=== PATIENT | male | born 1945 | race Caucasian/White ===

== ENCOUNTER → 2016-10-03 | Outpatient (CLI) | payer MEDICARE ==
[~2016-10-03] MED LIST: ATOR40TA PO; LEVA500T PO; PAXI30TA11 PO; PERC5TAB6 PO
== END ==
LOC: M SMT 13:35
PROVIDERS: ATTEND Urology
DX: Z90.79 Acquired absence of other genital organ(s) (principal); Z85.46 Personal history of malignant neoplasm of prostate

== ENCOUNTER → 2017-07-23 | Outpatient (REF) | payer MEDICARE ==
[2017-07-23 19:25] LABS: FOLATE 14.3 NG/ML; VITAMIN B12 LEVEL 368 PG/ML
== END ==
LOC: M LAB REF 16:24
DX: R25.1 Tremor, unspecified (principal)
CPT/HCPCS: 82525

== ENCOUNTER → 2017-10-01 | Outpatient (REF) | payer MEDICARE ==
[2017-10-02 18:07] LABS: FERRITIN 364 NG/ML (26-388); IRON (FE) 173 UG/DL (65-175); PERCENT SATURATION 56.9 % (19.7-50.0); TOTAL IRON BINDING CAPACITY 304 UG/DL (250-450)
== END ==
LOC: M LAB REF 16:41
DX: Z84.89 Family history of other specified conditions (principal)
CPT/HCPCS: 83550

== ENCOUNTER → 2017-10-01 | Outpatient (REF) | payer MEDICARE | LOC: M LAB REF 11:40 | DX: R74.0 Nonspecific elevation of levels of transaminase and lactic acid dehydrogenase [LDH] (principal); E83.110 Hereditary hemochromatosis | CPT/HCPCS: 81256 ==

== ENCOUNTER → 2017-10-08 | Outpatient (CLI) | payer MEDICARE | LOC: M RAD 09:01 | DX: R94.5 Abnormal results of liver function studies (principal) | CPT/HCPCS: 76705 ==

== ENCOUNTER 2018-02-19 13:39 | Inpatient (IN) | payer MEDICARE ==
[~2018-02-19 13:39] MED LIST changes: -ATOR40TA PO; -LEVA500T PO; +ONDANSETRON 4MG/2ML VIAL (J2405) IV; -PAXI30TA11 PO; -PERC5TAB6 PO
[2018-02-19 14:25] LABS: BASO # 0.1 10^3/uL (0.0-0.2); BASO % 0.4 % (0.0-1.0); HEMATOCRIT 44.8 % (42.0-52.0); HEMOGLOBIN 15.5 g/dl (13.5-17.5); IMMATURE GRANULOCYTE % 0.8 % (0-3.0); LYMPH % 7.6 % (24.0-44.0); MEAN CORPUSCULAR HEMOGLOBIN 32.8 pg (27.0-33.0); MEAN CORPUSCULAR HGB CONC 34.6 g/dl (32.0-36.5); MEAN CORPUSCULAR VOLUME 94.7 fl (80.0-96.0); MONO # 0.4 10^3/uL (0.0-0.8); MONO % 2.9 % (0.0-5.0); NEUTROPHILS # 11.8 10^3/uL (1.8-7.7); NEUTROPHILS % 88.3 % (36.0-66.0); PLATELET COUNT, AUTOMATED 226 10^3/uL (150-450); RED BLOOD COUNT 4.73 10^6/uL (4.30-6.10); RED CELL DISTRIBUTION WIDTH 12.6 % (11.5-14.5); WHITE BLOOD COUNT 13.3 10^3/uL (4.0-10.0)
[2018-02-19 14:31] LABS: AMMONIA 20 uMOL/L (<32)
[2018-02-19 14:38] LABS: LACTIC ACID SEPSIS PROTOCOL 2.3 MMOL/L (0.4-2.0)
[2018-02-19 14:41] LABS: ALBUMIN 3.9 GM/DL (3.2-5.2); ALBUMIN/GLOBULIN RATIO 1.26 (1.00-1.93); ALKALINE PHOSPHATASE 38 U/L (45-117); ALT/SGPT 64 U/L (12-78); ANION GAP 8 MEQ/L (8-16); AST/SGOT 40 U/L (7-37); BILIRUBIN,TOTAL 0.9 MG/DL (0.2-1.0); BLOOD UREA NITROGEN 6 MG/DL (7-18); C REACTIVE PROTEIN QUANTITATIV < 0.30 MG/DL (0.00-0.30); CALCIUM LEVEL 9.1 MG/DL (8.8-10.2); CARBON DIOXIDE LEVEL 28 MEQ/L (21-32); CHLORIDE LEVEL 101 MEQ/L (98-107); CREATININE FOR GFR 0.84 MG/DL (0.70-1.30); ETHYL ALCOHOL (ETHANOL) < 0.003 % (0.000-0.010); GLOMERULAR FILTRATION RATE > 60.0 (>42); GLUCOSE, FASTING 142 MG/DL (70-100); MAGNESIUM LEVEL 2.1 MG/DL (1.8-2.4); POTASSIUM SERUM 3.7 MEQ/L (3.5-5.1); SODIUM LEVEL 137 MEQ/L (136-145)
[2018-02-19 14:43] LABS: PROLACTIN 4.4 NG/ML (2.1-17.7)
[2018-02-19] MEDS ORDERED: LORazepam 2 MG/ML VIAL (J2060) IV (14:45)
[2018-02-19] MEDS ORDERED: OXAZEPAM 10 MG CAP PO (14:45)
[2018-02-19 14:52] LABS: ERYTHROCYTE SEDIMENTATION RATE 2 mm/hr (0-20)
[2018-02-19] MEDS: NS 1,000 ML IV (15:20)
[2018-02-19] MEDS: PANTOPRAZOLE 40MG TAB (PROTONIX) PO (15:20)
[2018-02-19] MEDS: ENOXAPARIN 30 MG/0.3 ML SYR (J1650) SC (15:21)
[2018-02-19] MEDS: PARoxetine 20 MG TAB PO (17:19)
[2018-02-19] MEDS ORDERED: PROHANCE 279.3MG/ML 15ML VIAL (A9576) As Ordered (18:33)
[2018-02-19] MEDS: ATORVASTATIN 20 MG TAB PO (21:20)
[2018-02-19] MEDS: TRIHEXYPHENIDYL 2 MG TAB PO (21:20)
[2018-02-19] MEDS ORDERED: SLF 3 ML SYR IV (21:30)
[2018-02-19] MEDS: SLF 3 ML SYR IV (21:31)
[2018-02-20 06:00] LABS: BASO # 0.1 10^3/uL (0.0-0.2); EOS # 0.1 10^3/uL (0.0-0.50); EOS % 1.1 % (0.0-3.0); HEMATOCRIT 40.3 % (42.0-52.0); HEMOGLOBIN 13.8 g/dl (13.5-17.5); IMMATURE GRANULOCYTE % 0.3 % (0-3.0); LYMPH % 27.8 % (24.0-44.0); MEAN CORPUSCULAR HEMOGLOBIN 32.3 pg (27.0-33.0); MEAN CORPUSCULAR HGB CONC 34.2 g/dl (32.0-36.5); MEAN CORPUSCULAR VOLUME 94.4 fl (80.0-96.0); MONO # 0.7 10^3/uL (0.0-0.8); MONO % 10.2 % (0.0-5.0); NEUTROPHILS # 4.3 10^3/uL (1.8-7.7); NEUTROPHILS % 59.6 % (36.0-66.0); PLATELET COUNT, AUTOMATED 189 10^3/uL (150-450); RED BLOOD COUNT 4.27 10^6/uL (4.30-6.10); RED CELL DISTRIBUTION WIDTH 12.7 % (11.5-14.5); WHITE BLOOD COUNT 7.3 10^3/uL (4.0-10.0)
[2018-02-20] MEDS: SLF 3 ML SYR IV ×3 (06:00→22:00)
[2018-02-20 06:22] LABS: ANION GAP 4 MEQ/L (8-16); BLOOD UREA NITROGEN 5 MG/DL (7-18); CALCIUM LEVEL 8.3 MG/DL (8.8-10.2); CARBON DIOXIDE LEVEL 28 MEQ/L (21-32); CHLORIDE LEVEL 107 MEQ/L (98-107); CHOLESTEROL LEVEL 149 MG/DL (<200); CHOLESTEROL RISK RATIO 2.365 (<5); GLOMERULAR FILTRATION RATE > 60.0 (>42); GLUCOSE, FASTING 111 MG/DL (70-100); HDL CHOLESTEROL 63 MG/DL (>40); LDL CHOLESTEROL 67 MG/DL (<100); NON-HDL-C 86 MG/DL; POTASSIUM SERUM 3.9 MEQ/L (3.5-5.1); SODIUM LEVEL 139 MEQ/L (136-145); TRIGLYCERIDES LEVEL 95 MG/DL (<150)
[2018-02-20] MEDS: TRIHEXYPHENIDYL 2 MG TAB PO ×2 (08:28→20:37)
[2018-02-20] MEDS: ENOXAPARIN 30 MG/0.3 ML SYR (J1650) SC (08:29)
[2018-02-20] MEDS: PANTOPRAZOLE 40MG TAB (PROTONIX) PO (08:29)
[2018-02-20] MEDS: PARoxetine 20 MG TAB PO (08:29)
[2018-02-20] MEDS: ATORVASTATIN 20 MG TAB PO (20:37)
[2018-02-21] MEDS: SLF 3 ML SYR IV ×2 (05:10→13:57)
[2018-02-21 05:29] LABS: BASO # 0.1 10^3/uL (0.0-0.2); BASO % 0.8 % (0.0-1.0); EOS # 0.1 10^3/uL (0.0-0.50); EOS % 1.9 % (0.0-3.0); HEMATOCRIT 42.3 % (42.0-52.0); HEMOGLOBIN 14.1 g/dl (13.5-17.5); IMMATURE GRANULOCYTE % 0.3 % (0-3.0); LYMPH % 31.3 % (24.0-44.0); MEAN CORPUSCULAR HEMOGLOBIN 32.2 pg (27.0-33.0); MEAN CORPUSCULAR HGB CONC 33.3 g/dl (32.0-36.5); MEAN CORPUSCULAR VOLUME 96.6 fl (80.0-96.0); MONO # 0.6 10^3/uL (0.0-0.8); MONO % 9.7 % (0.0-5.0); NEUTROPHILS # 3.6 10^3/uL (1.8-7.7); PLATELET COUNT, AUTOMATED 191 10^3/uL (150-450); RED BLOOD COUNT 4.38 10^6/uL (4.30-6.10); RED CELL DISTRIBUTION WIDTH 12.7 % (11.5-14.5); WHITE BLOOD COUNT 6.4 10^3/uL (4.0-10.0)
[2018-02-21 05:53] LABS: ANION GAP 6 MEQ/L (8-16); BLOOD UREA NITROGEN 6 MG/DL (7-18); CALCIUM LEVEL 8.7 MG/DL (8.8-10.2); CARBON DIOXIDE LEVEL 30 MEQ/L (21-32); CHLORIDE LEVEL 105 MEQ/L (98-107); CREATININE FOR GFR 0.78 MG/DL (0.70-1.30); GLOMERULAR FILTRATION RATE > 60.0 (>42); GLUCOSE, FASTING 94 MG/DL (70-100); POTASSIUM SERUM 4.1 MEQ/L (3.5-5.1); SODIUM LEVEL 141 MEQ/L (136-145)
[2018-02-21] MEDS: PARoxetine 20 MG TAB PO (08:36)
[2018-02-21] MEDS: ENOXAPARIN 30 MG/0.3 ML SYR (J1650) SC (08:37)
[2018-02-21] MEDS: PANTOPRAZOLE 40MG TAB (PROTONIX) PO (08:37)
[2018-02-21] MEDS: TRIHEXYPHENIDYL 2 MG TAB PO (08:37)
== END 2018-02-21 18:40 | disposition home or self-care (01) | DRG 149 ==
LOC: M PCU 13:39
DX: H81.10 Benign paroxysmal vertigo, unspecified ear (principal); I50.32 Chronic diastolic (congestive) heart failure; G24.9 Dystonia, unspecified; I10 Essential (primary) hypertension; R55 Syncope and collapse; F32.9 Major depressive disorder, single episode, unspecified; F10.20 Alcohol dependence, uncomplicated; F41.9 Anxiety disorder, unspecified; Z85.46 Personal history of malignant neoplasm of prostate; Z79.899 Other long term (current) drug therapy

== ENCOUNTER → 2018-03-03 | Outpatient (CLI) | payer MEDICARE ==
[~2018-03-03] MED LIST changes: +E-Z-GAS II EFFERVESCENT PACKET (SODIUM BICARB./CITRIC ACID/SIMETHICONE) As Ordered; +E-Z-HD 98% w/w 340GM SUSP BTL As Ordered; +E-Z-PAQUE 96% w/w SUSP 176GM BTL As Ordered; -ONDANSETRON 4MG/2ML VIAL (J2405) IV
== END ==
LOC: M RAD 08:15
DX: R68.81 Early satiety (principal)
CPT/HCPCS: 74245

== ENCOUNTER → 2018-09-29 | Outpatient (REF) | payer MEDICARE ==
[~2018-09-29] MED LIST changes: +ATOR40TA75 PO; -E-Z-GAS II EFFERVESCENT PACKET (SODIUM BICARB./CITRIC ACID/SIMETHICONE) As Ordered; -E-Z-HD 98% w/w 340GM SUSP BTL As Ordered; -E-Z-PAQUE 96% w/w SUSP 176GM BTL As Ordered; +LEVA1TAB2 PO; +MECL-86 PO; +PAXI30TA11 PO; +PAXI40TA10 PO; +PERC5TAB12 PO; +TRIH0.4E PO; +TRIH2TAB3 PO
== END ==
LOC: M LAB REF 12:40
PROVIDERS: ATTEND Nurse Practitioner Adult Health
DX: E83.110 Hereditary hemochromatosis (principal)

== ENCOUNTER → 2019-09-30 | Outpatient (REF) | payer MEDICARE ==
[2019-09-30 12:53] LABS: PERCENT SATURATION 54.5 % (19.7-50.0)
== END ==
LOC: M LAB REF 12:19
PROVIDERS: ATTEND Nurse Practitioner Adult Health
DX: E83.110 Hereditary hemochromatosis (principal); C61 Malignant neoplasm of prostate

== ENCOUNTER → 2019-10-07 | Outpatient (REF) | payer MEDICARE, OTHER | LOC: M LAB REF 12:37 | PROVIDERS: ATTEND Nurse Practitioner Adult Health | DX: R31.0 Gross hematuria (principal) ==

== ENCOUNTER → 2019-10-14 | Outpatient (REF) | payer MEDICARE, OTHER | LOC: M LAB REF 12:08 | PROVIDERS: ATTEND Nurse Practitioner Adult Health | DX: R31.0 Gross hematuria (principal) ==

== ENCOUNTER 2020-01-05 06:53 | Day surgery (SDC) | payer MEDICARE, OTHER ==
[2020-01-05] MEDS ORDERED: ELEVIEW SUBMUCOSAL INJ 10ML AMP As Ordered ONE (07:49)
[2020-01-05] MEDS ORDERED: propofoL 200 MG/20 ML VIAL As Ordered ONE (07:50)
[2020-01-05] MEDS ORDERED: LIDOCAINE 2% 100MG/5ML SDV (FOR ANES.) As Ordered ONE (07:50)
--- NOTE | 2020-01-27 11:35 | ROOR ---
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 Procedure: Pre-Anesthesia Assessment: - Prior to the procedure, a History and Physical was performed, and patient medications and allergies were reviewed. The patient is competent. The risks and benefits of the procedure and the sedation options and risks were discussed with the patient. All questions were answered and informed consent was obtained. Patient identification and proposed procedure were verified by the physician, the nurse and the anesthesiologist in the procedure room. Mental Status Examination: alert and oriented. Airway Examination: normal oropharyngeal airway and neck mobility. Respiratory Examination: clear to auscultation. CV Examination: normal. Prophylactic Antibiotics: The patient does not require prophylactic antibiotics. Prior Anticoagulants: The patient has taken no previous anticoagulant or antiplatelet agents. ASA Grade Assessment: II - A patient with mild systemic disease. After reviewing the risks and benefits, the patient was deemed in satisfactory condition to undergo the procedure. The anesthesia plan was to use monitored anesthesia care (MAC). Immediately prior to administration of medications, the patient was re-assessed for adequacy to receive sedatives. The heart rate, respiratory rate, oxygen saturations, blood pressure, adequacy of pulmonary ventilation, and response to care were monitored throughout the procedure. The physical status of the patient was re-assessed after the procedure. The Colonoscope was introduced through the anus and advanced to the terminal ileum, with identification of the appendiceal orifice and IC valve. The colonoscopy was performed without difficulty. The patient tolerated the procedure well. The quality of the bowel preparation was good. The terminal ileum, ileocecal valve, appendiceal orifice, and rectum were photographed. Scope insertion time was 3 minutes. Scope withdrawal time was 9 minutes. The total duration of the procedure was 12 minutes. Findings: The perianal and digital rectal examinations were normal. The terminal ileum appeared normal. A 25 mm polyp was found in the recto-sigmoid colon. The polyp was sessile. Biopsies were taken with a cold forceps for histology. Verification of patient identification for the specimen was done by the physician and nurse using the patient's name, date and medical record number. Estimated blood loss was minimal. Three sessile polyps were found in the transverse colon and ascending colon. The polyps were 4 to 5 mm in size. These polyps were removed with a cold biopsy forceps. Resection and retrieval were complete. Non-bleeding external and internal hemorrhoids were found during retroflexion. The hemorrhoids were medium-sized. Impression: - The examined portion of the ileum was normal. - One 25 mm polyp at the recto-sigmoid colon. Biopsied. - Three 4 to 5 mm polyps in the transverse colon and in the ascending colon, removed with a cold biopsy forceps. Resected and retrieved. - Non-bleeding external and internal hemorrhoids. Recommendation: - Patient has a contact number available for emergencies. The signs and symptoms of potential delayed complications were discussed with the patient. Return to normal activities tomorrow. Written discharge instructions were provided to the patient. - High fiber diet. - Continue present medications. - Await pathology results. - Repeat colonoscopy in 2 months for retreatment with Endoscopic mucosa resection,. - Return to GI clinic in 2 weeks. - Return to primary care physician. Armani Page MD Armani Page MD 01/05/2020 8:30:27 AM Electronically signed by Armani Page MD Number of Addenda: 0 Note Initiated On: 01/05/2020 8:13 AM Estimated Blood Loss: Estimated blood loss was minimal.
[2020-02-08] MEDS ORDERED: LOPR1TAB6 PO (13:37)
[2020-03-03] MEDS ORDERED: METR375C3 PO (11:19)
[2020-03-03] MEDS ORDERED: NEOM500T PO (11:19)
== END 2020-01-05 09:25 | disposition home or self-care (01) ==
LOC: M SDC 06:53
PROVIDERS: ATTEND Internal Medicine Gastroenterology
DX: K63.5 Polyp of colon (principal); K64.8 Other hemorrhoids; R19.5 Other fecal abnormalities; Z79.899 Other long term (current) drug therapy; Z85.46 Personal history of malignant neoplasm of prostate

== ENCOUNTER → 2020-02-05 | Outpatient (CLI) | payer MEDICARE ==
[~2020-02-05] MED LIST changes: +GASTROGRAFIN SOLUTION 30ML (Q9963) As Ordered ONE; +ISOVUE-370 76% 100ML VIAL As Ordered ONE; +LOPR1TAB6 PO; +METO1TAB7 PO; +METR375C3 PO; +NEOM500T PO
--- NOTE | 2020-02-19 09:20 | REP ---
CT STUDY OF THE ABDOMEN AND PELVIS WITH INTRAVENOUS (IV) AND ORAL CONTRAST HISTORY: Neoplasm of unspecified behavior of the digestive system. Large rectosigmoid polypoid mass, biopsy showing high-grade dysplasia, but no malignancy. Evaluate for invasive cancer. Lymphadenopathy, versus liver metastasis. CT CONTRAST DOSE: 100 mL of intravenous Isovue-370. COMPARISON: No comparison CT study. CT FINDINGS: Digital preliminary feed mixer radiograph shows an unremarkable bowel gas pattern. There are inguinal herniorrhaphy sutures visible on the right. The lung bases are clear on axial CT images. The liver shows mild diffuse fatty infiltration. No liver mass lesion is observed. The spleen is normal in size and homogeneous in texture. No adrenal lesion is seen on either side. No abnormality is noted in the pancreas. There is a Phrygian cap in the gallbladder. No other gallbladder abnormality is seen. No retroperitoneal mass or adenopathy is seen. The kidneys enhance symmetrically and are morphologically intact. Pelvic CT images demonstrate an eccentric nodular area of mural thickening in the rectum measuring 2.2 cm in greatest diameter. No other colonic mass lesion is seen. No perirectal or pericolonic adenopathy is observed. No pelvic adenopathy is seen. No abdominal wall defect or bony destructive lesion is appreciated. IMPRESSION: There is a 2.2 cm polypoid lesion along the left lateral wall of the upper rectum. No evidence of mass or adenopathy elsewhere. Fatty infiltration of the liver. No other acute abdominal abnormality. MTDD
== END ==
LOC: M RAD 07:26
PROVIDERS: ATTEND Internal Medicine Gastroenterology
DX: K62.89 Other specified diseases of anus and rectum (principal)
CPT/HCPCS: 74177; Q9963; Q9967

== ENCOUNTER → 2020-02-10 | Outpatient (CLI) | payer MEDICARE ==
[~2020-02-10] MED LIST changes: -GASTROGRAFIN SOLUTION 30ML (Q9963) As Ordered ONE; -ISOVUE-370 76% 100ML VIAL As Ordered ONE
== END ==
LOC: M LABSMTC 13:02
PROVIDERS: ATTEND Anesthesiology
DX: Z01.812 Encounter for preprocedural laboratory examination (principal); Z20.828 Contact with and (suspected) exposure to other viral communicable diseases
CPT/HCPCS: C9803; U0003

== ENCOUNTER 2020-02-15 11:43 | Day surgery (SDC) | payer MEDICARE ==
[~2020-02-15] VITALS: Ht 175.3 cm; Wt 71.7 kg
[~2020-02-15 11:43] MED LIST changes: +LIDOCAINE 2% 100MG/5ML SDV (FOR ANES.) As Ordered ONE; -METO1TAB7 PO; -METR375C3 PO; -NEOM500T PO; +NS 1,000 ML IV ONE; +propofoL 200 MG/20 ML VIAL As Ordered ONE
[2020-02-15] MEDS ORDERED: propofoL 200 MG/20 ML VIAL As Ordered ONE ×3 (13:48→14:34)
[2020-02-15] MEDS ORDERED: ePHEDrine SULFATE 25 MG/5 ML(5MG/ML) SYRINGE As Ordered ONE (13:59)
--- NOTE | 2020-02-15 15:17 | ROOR ---
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 Procedure: Pre-Anesthesia Assessment: - Prior to the procedure, a History and Physical was performed, and patient medications and allergies were reviewed. The patient is competent. The risks and benefits of the procedure and the sedation options and risks were discussed with the patient. All questions were answered and informed consent was obtained. Patient identification and proposed procedure were verified by the physician, the nurse and the anesthesiologist in the procedure room. Mental Status Examination: alert and oriented. Airway Examination: normal oropharyngeal airway and neck mobility. Respiratory Examination: clear to auscultation. CV Examination: normal. Prophylactic Antibiotics: The patient does not require prophylactic antibiotics. Prior Anticoagulants: The patient has taken no previous anticoagulant or antiplatelet agents. ASA Grade Assessment: II - A patient with mild systemic disease. After reviewing the risks and benefits, the patient was deemed in satisfactory condition to undergo the procedure. The anesthesia plan was to use monitored anesthesia care (MAC). Immediately prior to administration of medications, the patient was re-assessed for adequacy to receive sedatives. The heart rate, respiratory rate, oxygen saturations, blood pressure, adequacy of pulmonary ventilation, and response to care were monitored throughout the procedure. The physical status of the patient was re-assessed after the procedure. The Colonoscope was introduced through the anus and advanced to the terminal ileum, with identification of the appendiceal orifice and IC valve. The colonoscopy was performed without difficulty. The patient tolerated the procedure well. The quality of the bowel preparation was good. The ileocecal valve, appendiceal orifice, and rectum were photographed. Scope insertion time was 3 minutes. Scope withdrawal time was 9 minutes. The total duration of the procedure was 35 minutes. Findings: The perianal and digital rectal examinations were normal. The terminal ileum appeared normal. A 25 mm polyp was found in the recto-sigmoid colon. The polyp was sessile. Preparations were made for mucosal resection. Chromoscopy with methylene blue was done to rory the borders of the lesion. 6 mL of Orise gel was injected with adequate lift of the lesion from the muscularis propria. Forceps and snare mucosal resection with suction (via the working channel) retrieval was performed. A 25 mm area was resected. Resection and retrieval were complete. There was no bleeding at the end of the procedure. To close a defect after mucosal resection, five hemostatic clips were successfully placed. There was no bleeding at the end of the procedure. Verification of patient identification for the specimen was done by the physician and nurse using the patient's name, date and medical record number. Estimated blood loss was minimal. Non-bleeding external and internal hemorrhoids were found during retroflexion. The hemorrhoids were medium-sized. Impression: - The examined portion of the ileum was normal. - One 25 mm polyp at the recto-sigmoid colon, removed with mucosal resection. Resected and retrieved. Clips were placed. - Non-bleeding external and internal hemorrhoids. - Mucosal resection was performed. Resection and retrieval were complete. Recommendation: - Patient has a contact number available for emergencies. The signs and symptoms of potential delayed complications were discussed with the patient. Return to normal activities tomorrow. Written discharge instructions were provided to the patient. - NPO for 6 hours today, then advance as tolerated to clear liquid diet for 1 day and then to regular diet - Continue present medications. - Miralax 1 capful (17 grams) in 8 ounces of water PO daily for 5 days. - Cipro (ciprofloxacin) 500 mg PO BID for 5 days. - Flagyl (metronidazole) 500 mg PO TID for 5 weeks. - Await pathology results. - Perform a flexible sigmoidoscopy to check healing and to review polypectomy site in 3 months. - Return to GI clinic in [facility] (address [address], [address], [place], [facility]) in 4 -- 6 weeks. Please call GI clinic @ [phone] for apppointment date and time. - Telephone GI clinic if symptomatic. - Return to primary care physician. Armani Page MD Armani Page MD 02/15/2020 3:17:11 PM Electronically signed by Armani Page MD Number of Addenda: 0 Note Initiated On: 02/15/2020 12:58 PM Estimated Blood Loss: Estimated blood loss was minimal.
[2020-02-15 15:20] VITALS: BP 166/82
[2020-03-03] MEDS ORDERED: NEOM500T PO (11:19)
[2020-03-03] MEDS ORDERED: METR375C3 PO (11:19)
== END 2020-02-15 15:48 | disposition home or self-care (01) ==
LOC: M OPP 11:43
PROVIDERS: ATTEND Internal Medicine Gastroenterology
DX: K63.5 Polyp of colon (principal); K64.8 Other hemorrhoids; D01.2 Carcinoma in situ of rectum; G47.30 Sleep apnea, unspecified; Z79.899 Other long term (current) drug therapy

== ENCOUNTER → 2020-03-01 | Outpatient (REF) | payer MEDICARE ==
[~2020-03-01] MED LIST changes: -LIDOCAINE 2% 100MG/5ML SDV (FOR ANES.) As Ordered ONE; +METO1TAB7 PO; +METR375C3 PO; +NEOM500T PO; -NS 1,000 ML IV ONE; -propofoL 200 MG/20 ML VIAL As Ordered ONE
== END ==
LOC: M LAB REF 12:22
PROVIDERS: ATTEND Nurse Practitioner Adult Health
DX: C18.7 Malignant neoplasm of sigmoid colon (principal)

== ENCOUNTER → 2020-03-02 | Outpatient (CLI) | payer MEDICARE | LOC: M LABSMTC 13:11 | PROVIDERS: ATTEND Anesthesiology | DX: Z01.812 Encounter for preprocedural laboratory examination (principal); Z20.828 Contact with and (suspected) exposure to other viral communicable diseases | CPT/HCPCS: C9803; U0003 ==

== ENCOUNTER → 2020-03-02 | Outpatient (CLI) | payer MEDICARE ==
--- NOTE | 2020-03-07 09:21 | REP ---
DATE: 03/02/2020 ABDOMINAL RADIOGRAPH CLINICAL: Malignant neoplasm of the sigmoid colon TECHNIQUE: Two supine views of the abdomen and pelvis. FINDINGS: Bowel gas pattern is nonspecific. Surgical changes in the pelvis noted. No organomegaly. No abnormal calcifications. No significant foreign body. Skeletal structure is intact. IMPRESSION: Relatively nonspecific abdominal radiographs. MTDD
== END ==
LOC: M RAD 11:51
PROVIDERS: ATTEND Surgery
DX: C18.7 Malignant neoplasm of sigmoid colon (principal)

== ENCOUNTER 2020-03-07 09:36 | Inpatient (IN) | payer MEDICARE ==
[2020-03-07] VITALS (7 sets, daily range): BP systolic 108–112; BP diastolic 67–69
[~2020-03-07] VITALS: Ht 175.3 cm; Wt 71.6 kg
[~2020-03-07 09:36] MED LIST changes: +ALVIMOPAN 12 MG CAPSULE (ENTEREG) PO ONE; +LR 1,000 ML IV ONE; -METO1TAB7 PO; +cefoTEtan DISODIUM 2 GM in D5W MINI-BAG PLUS 50 ML IV ONE
[2020-03-07] MEDS ORDERED: BUPIVACAINE HCL 0.25% 30ML VIAL As Ordered ONE (10:55)
[2020-03-07] MEDS ORDERED: fentaNYL 250 MCG/5 ML INJECTION (J3010) As Ordered ONE (12:15)
[2020-03-07] MEDS ORDERED: propofoL 200 MG/20 ML VIAL As Ordered ONE (12:15)
[2020-03-07] MEDS ORDERED: LIDOCAINE 2% 100MG/5ML SDV (FOR ANES.) As Ordered ONE (12:15)
[2020-03-07] MEDS ORDERED: dexameTHASONE 4 MG/ML 1ML VIAL (J1100 PER 1MG) As Ordered ONE (12:15)
[2020-03-07] MEDS ORDERED: DESFLURANE 240 ML INHALANT As Ordered ONE (12:15)
[2020-03-07] MEDS ORDERED: ROCURONIUM BROMIDE 50 MG/5 ML VIAL As Ordered ONE ×2 (12:15→13:16)
[2020-03-07] MEDS ORDERED: ONDANSETRON 4MG/2ML VIAL As Ordered ONE (12:15)
[2020-03-07] MEDS ORDERED: MIDAZOLAM INJ 2MG/2ML VIAL (J2250 PER 1MG) As Ordered ONE (12:15)
[2020-03-07] MEDS ORDERED: SUGAMMADEX SODIUM 500 MG/5 ML VIAL (BRIDION) As Ordered ONE (12:15)
[2020-03-07] MEDS ORDERED: PHENYLephrine HCL 500 MCG/5 ML (100MCG/ML) SYRINGE (J2370) As Ordered ONE (12:15)
[2020-03-07] MEDS ORDERED: ACETAMINOPHEN 1000MG 100ML IV BTL (OFIRMEV) (J0131 PER 10MG) As Ordered ONE (13:13)
[2020-03-07] MEDS ORDERED: HYDROmorphone HCL 2 MG/ML 1ML VIAL (J1170) As Ordered ONE (15:18)
[2020-03-07] MEDS ORDERED: LR 1,000 ML IV SCH (17:30)
[2020-03-07] MEDS ORDERED: ONDANSETRON 4MG/2ML VIAL IV PRN ×2 (17:30→17:45)
[2020-03-07] MEDS ORDERED: HYDROMORPHONE HCL 0.5 MG/ 0.5 ML SYRINGE (J1170 PER 1) IV PRN (17:30)
[2020-03-07] MEDS ORDERED: oxyCODONE 5MG TAB PO PRN (17:30)
[2020-03-07] MEDS: fentaNYL 100 MCG/2 ML INJECTION (J3010) IV PRN ×2 (17:37→17:46)
[2020-03-07] MEDS ORDERED: METOCLOPRAMIDE INJ 10MG/2ML VIAL (J2765 PER 1) IV PRN (17:45)
[2020-03-07] MEDS ORDERED: NORCO, ANEXSIA 5/325MG TABLET (HYDROcodone/ACETAMINOPHEN) PO PRN (17:45)
[2020-03-07] MEDS ORDERED: MORPHINE 2 MG/ML 1ML VIAL (J2270) IV PRN (17:45)
[2020-03-07] MEDS ORDERED: METO1TAB7 PO (18:09)
[2020-03-07] MEDS: ACETAMINOPHEN TAB 650MG DOSE (2X325MG) PO SCH (20:01)
[2020-03-07] MEDS: ALVIMOPAN 12 MG CAPSULE (ENTEREG) PO SCH (20:02)
[2020-03-07] MEDS: KETOROLAC 30 MG/ML 1ML VIAL IV SCH (20:02)
[2020-03-07] MEDS: LR 1,000 ML IV SCH (20:04)
[2020-03-08] MEDS ORDERED: cefoTEtan DISODIUM 1 GM in D5W MINI-BAG PLUS 50 ML IV ONE ×2
[2020-03-08] MEDS: ACETAMINOPHEN TAB 650MG DOSE (2X325MG) PO SCH ×4 (00:02→18:02)
[2020-03-08] MEDS: KETOROLAC 30 MG/ML 1ML VIAL IV SCH ×3 (00:03→11:16)
[2020-03-08 03:40] VITALS: BP 113/60
[2020-03-08] MEDS: LR 1,000 ML IV SCH (06:07)
[2020-03-08] MEDS: METOPROLOL SUCC (TopROL XL) 50MG **XL** TAB PO SCH (07:53)
[2020-03-08] MEDS: ATORVASTATIN 20 MG TAB PO SCH (07:53)
[2020-03-08] MEDS: PARoxetine 20 MG TAB PO SCH (07:53)
[2020-03-08] MEDS: ALVIMOPAN 12 MG CAPSULE (ENTEREG) PO SCH (07:53)
[2020-03-08] MEDS: ENOXAPARIN 40MG/0.4ML SYRINGE (J1650 PER 10MG) SC SCH (07:54)
[2020-03-08 08:50] LABS: BASO % 0.2 % (0.0-1.0); HEMATOCRIT 36.6 % (42.0-52.0); HEMOGLOBIN 12.4 g/dl (13.5-17.5); LYMPH # 2.2 10^3/uL (1.5-5.0); LYMPH % 18.1 % (24.0-44.0); MEAN CORPUSCULAR HEMOGLOBIN 32.8 pg (27.0-33.0); MEAN CORPUSCULAR HGB CONC 33.9 g/dl (32.0-36.5); MEAN CORPUSCULAR VOLUME 96.8 fl (80.0-96.0); MONO # 1.1 10^3/uL (0.0-0.8); MONO % 8.9 % (0.0-5.0); NEUTROPHILS # 8.6 10^3/uL (1.5-8.5); NEUTROPHILS % 72.3 % (36.0-66.0); PLATELET COUNT, AUTOMATED 156 10^3/uL (150-450); RED BLOOD COUNT 3.78 10^6/uL (4.30-6.10); WHITE BLOOD COUNT 11.9 10^3/uL (4.0-10.0)
[2020-03-08 09:16] LABS: BLOOD UREA NITROGEN 7 MG/DL (7-18); CALCIUM LEVEL 8.7 MG/DL (8.8-10.2); CARBON DIOXIDE LEVEL 28 MEQ/L (21-32); CHLORIDE LEVEL 104 MEQ/L (98-107); CREATININE FOR GFR 0.94 MG/DL (0.70-1.30); GLOMERULAR FILTRATION RATE > 60.0 (>42); GLUCOSE, FASTING 129 MG/DL (70-100); POTASSIUM SERUM 3.8 MEQ/L (3.5-5.1); SODIUM LEVEL 139 MEQ/L (136-145)
[2020-03-08 10:00] VITALS: BP 111/61
[2020-03-08 14:00] VITALS: BP 110/60
[2020-03-08 22:00] VITALS: BP 136/60
[2020-03-09] MEDS: ACETAMINOPHEN TAB 650MG DOSE (2X325MG) PO SCH ×3 (00:10→12:24)
[2020-03-09 02:00] VITALS: BP 124/64
--- NOTE | 2020-03-09 09:19 | IPN ---
DATE: 03/08/2020 HISTORY: Patient is postop day #1 from a robotic-assisted laparoscopic low anterior resection with coloproctostomy. He has been tolerating some clear liquids. He has had two small bowel movements of some loose, yellowish fluid and has been passing some flatus. He has voided several times. He is not taking any narcotic pain medications. Vital signs show that he has been afebrile since surgery. His pulse is in the 60s and 70s and his blood pressure is good. Intake and output shows that his oral intake has been excellent and his IV will be saline locked. PHYSICAL EXAMINATION: The patient is alert and oriented, and appears fairly comfortable. Heart exam is regular and not tachycardic. The abdomen is nondistended. His dressings are clean and dry. He has active bowel sounds. There is no undue tenderness. LABORATORY STUDIES: Today show a white count of 12, hemoglobin 12, hematocrit 37 and a platelet count of 156,000. Differential count shows 72% neutrophils, 18% lymphocytes and 9% monocytes. Chemistry profile shows normal electrolytes with a BUN of 7, creatinine 0.9 and a glucose of 129. IMPRESSION: The patient is doing very well postop day one from his low anterior resection. PLAN: He will be advanced to a regular diet today. The IV will be saline locked. He is encouraged to be up out of bed. He was counseled that he may have some difficulty initially with control of bowel movements due to the decreased volume of his rectum and he may have some more difficulty differentiating air from fluid. I advised him that he will likely be ready for discharge in the next 1-2 days. SHELLY
[2020-03-09] MEDS: PARoxetine 20 MG TAB PO SCH (09:49)
[2020-03-09] MEDS: ATORVASTATIN 20 MG TAB PO SCH (09:49)
[2020-03-09] MEDS: ENOXAPARIN 40MG/0.4ML SYRINGE (J1650 PER 10MG) SC SCH (09:49)
[2020-03-09 09:52] VITALS: BP 121/68
[2020-03-09] MEDS: METOPROLOL SUCC (TopROL XL) 50MG **XL** TAB PO SCH (09:52)
--- NOTE | 2020-03-14 08:10 | RO ---
DATE OF OPERATION: 03/07/2020 PREOPERATIVE DIAGNOSIS: Rectosigmoid cancer POSTOPERATIVE DIAGNOSIS: Rectal carcinoma. PROCEDURE: A robotic assisted laparoscopic low anterior resection with colorectal anastomosis, lysis of adhesions and flexible sigmoidoscopic examination both before and after resection. SURGEON: Marcial Michelle MD NET MENDER: Yazan Arce DO SECOND HOME HEALTH SCHEDULER: Anny Sky MARINE DRILLERReyna Arce was necessary to assist in performing the anastomosis and also performing endoscopy to test for anastomotic leak after the anastomosis had been completed. Anny Sky was necessary for management of the robotic instrumentation with change of instrument with insertion of the ports and passage of instruments. ANESTHESIA: General. INDICATIONS FOR THE PROCEDURE: The patient is a 74-year-old man who had undergone Cologuard testing that was positive. He underwent colonoscopy, which revealed a 25 mm polyp of the rectosigmoid region. There was adenomatous tissue identified and he was brought back for attempted resection of this polyp. He underwent an endoscopic resection, but the final pathology revealed moderately differentiated adenocarcinoma with cautery on the base of the polyp suggesting some residual tumor. He is now for a colon resection. OPERATIVE PROCEDURE: The patient was brought to the operating room after completing his antibiotic and mechanical bowel preparation at home. He was placed on the table in a supine position. He was placed under general endotracheal anesthesia. A Manuel catheter was inserted. He was moved into a low lithotomy position with his legs in padded leg holders. Digital rectal examination was performed. There was a small amount of residual prep released. A flexible sigmoidoscopic examination was performed after positioning and this revealed the tumor site as marked by a hemostatic clip placed at the time of the resection to be approximately 10 to 12 cm above the anal verge. The scope was then withdrawn. The patient's abdomen and perineum were prepped and draped in a sterile fashion. 25% Marcaine was infiltrated at the trocar sites as needed. Initial entry was in the left upper quadrant. A short transverse incision was made and a Veress needle was inserted. After positive hanging drop test, the abdomen was insufflated with carbon dioxide gas. An 8 mm robotic port was placed over a 5 mm camera and inserted through the abdominal without difficulty. Initial examination revealed a few filmy adhesions to the anterior abdominal wall. These began at the level of the umbilicus. The liver appeared normal without no evidence of metastatic disease. The peritoneum with fluid. Visualized portions of the stomach and small and large bowel were normal. A second 8 mm port was placed just above the umbilicus. 12 mm Port was placed 8 to 10 cm to the right and lower and a final 8 mm port was placed low in the right lower quadrant. The patient was tilted slightly to a Trendelenburg position. The patient cart with the da Cherri XI robot was brought into position and targeted the endoscope port. The endoscope port was docked. The endoscope was inserted and targeting took place in the left side of the pelvis. The additional robotic arms were then docked. A fenestrated bipolar was placed in the left upper quadrant site. A cauterizing scissor was placed through the 12 mm port and a grasping retractor was placed to right lower upper quadrant port. I then moved to the control console to proceed with the operation. Initially, the adhesions of the omentum to the anterior abdominal wall were lysed and hemostasis was ensured. The omentum was elevated into the upper abdomen. The patient was tilted at approximately 15 degrees of Trendelenburg. The sigmoid colon was identified at the area of the pelvic brim. Some of the lateral attachments were divided using the cauterizing scissors. Dissection was then carried up along the lateral aspect of the proximal sigmoid and the descending colon freeing the lateral attachments through the avascular plane and mobilizing the colon medially to allow for this to be advanced later into the pelvis for anastomosis. Once the descending colon had been adequately mobilized, I carried the dissection down the left lateral aspect of the sigmoid and upper rectum opening the peritoneum. This allowed the entire sigmoid colon to be displaced medially. The patient was tilted an additional 10 degrees to a total of approximately 25 degrees of Trendelenburg. I selected a point for transection of the sigmoid colon at about the mid sigmoid level. An opening was created through the mesentery using the vessel sealer and the colon was divided with a 45 mm endoscopic staple load. The mesentery was then divided down its base. Then dissection was carried distally elevating the sigmoid colon and working down towards the pelvic brim. Vascular structures were divided with the vessel sealer. The peritoneum was then opened down both sides of the distal sigmoid and upper rectum. The appropriate plane was entered for a total mesorectal excision and carried distally to a point that estimated would place us several cm distal to the lesion. This had not been spot marked during his endoscopic resection. After carrying the dissection distally and adequate distance, the mesorectum was transected using the vessel sealer up to the wall of the rectum. The wall was identified and cleared circumferentially and the rectum was stapled with two loads of the 45 mm endoscopic stapler. The staple line on the rectum was then cleared of some surrounding fibrofatty tissue on the rectal wall to allow an open area for staple anastomosis. Attention was then turned to further mobilizing the end of the remaining sigmoid colon and descending colon to allow this to be brought readily into the pelvis. At this point, the abdomen was opened to approximately 5 to 6 cm midline incision beginning at the supraumbilical port and carrying this inferiorly around the right side of the umbilicus. The small Ras wound retractor was placed through this incision. The specimen was delivered first. The end of the sigmoid colon was then delivered. Initially, the staple line was cut off the end of the sigmoid colon and some surrounding fibrofatty tags were carefully removed. A pursestring suture of 2-0 Prolene was placed in the end of the colon and the anvil of a 29 mm EEA stapler was placed into the end of the colon. The pursestring suture was tied down. The colon was lavaged with saline and then reduced into the abdomen. At this point, I opened the rectosigmoid specimen and discovered that the specimen did not contain the cancer that had been identified. It was therefore clear that a further resection of the rectum would be required. The midline incision was then closed with a running #1 Vicryl up to the top of the incision where the 8 mm port was reinserted and the suture tied down around this. The robot was brought back into position and re-docked. I then proceeded to extend the rectal dissection inferiorly, an additional 5 to 6 cm circumferentially. Once I carried the dissection as far as I thought was necessary. The mesorectum was again transected with the vessel sealer and the rectum was stapled with the 45 mm robotic stapler. This required 3 loads to completely transect the rectum. Again, the fibrofatty tissue around the end of the rectum was dissected back slightly to allow for a clear space for a staple anastomosis. Hemostasis was ensured and the pelvis was irrigated to confirm excellent hemostasis. The periumbilical incision was then reopened. The new specimen was delivered. This was opened and showed that the small cancer was noted just distal to the previous staple line with an excellent distal margin now. There was hemostatic clip that marked the site of the tumor resection. This second specimen was then set aside. The midline incision was then closed using interrupted simple sutures of #1 Vicryl. The robot was re-docked through the remaining [address] Arce then went down to the peritoneum and inserted the stapler into the rectal stump. Using the robotic instruments, the anvil of the stapler was grasped and brought down into the pelvis. The post of the anvil was brought out through the end of the rectal stump adjacent to the staple line and the anvil was attached and the stapler was then closed by Dr. Arce and then fired. He inspected the tissue doughnuts from the stapler and these were excellent. I then placed a clamp gently across the distal sigmoid and with the pelvis filled with saline, Dr. Arce insufflated air through a endoscope and there was no evidence of air leak. He was able to see anastomosis clearly and there was an excellent anastomosis without bleeding. The endoscope was then removed. The patient was then returned to a flat position. A single 2-0 Vicryl was placed through the fascia of the 12 mm port working through the skin site. The skin incisions were then all closed with buried 4-0 Vicryl and Steri-Strips. Some additional 25% Marcaine was infiltrated. I elected to remove the Manuel catheter. The patient was then awakened in the operating room, extubated and moved to the recovery room in stable condition. Before sending the specimen to the lab, I marked the distal end of the distal most specimen with a 2-0 silk suture. The distal end of the more proximal sigmoid and proximal rectal resection was marked with 2 silk sutures. This was to enable the pathologist to identify the appropriate orientation. These were sent together in formalin for permanent pathology. SHELLY
--- NOTE | 2020-03-14 10:04 | IPN ---
DATE: 03/09/2020 HISTORY: The patient is now postop day number two from a robotic-assisted laparoscopic low anterior resection for a small upper rectal cancer. He was advanced to a regular diet yesterday. He has tolerated this well. He reports that he is voiding without difficulty and has had several loose bowel movements with good control. He is not having any significant pain and is using no medications currently. PHYSICAL EXAMINATION: Vital signs show that he has been afebrile over the past 24 hours. His pulse is in the 70s and his blood pressure is normal. Intake and output shows that yesterday he had 2900 in with multiple voids recorded but not measured. The patient was sitting on the edge of the bed when I entered the room. He is able to be up and ambulatory without assistance and appears to be without discomfort. Heart exam shows a regular rhythm and he is not tachycardic. The lungs are clear. The abdomen is flat. He has active bowel sounds. His wounds are dressed with clean dressings and these are dry. There is no undue abdominal tenderness on palpation. LABORATORY STUDIES: The patient has no new labs and his pathology is still pending. IMPRESSION: The patient is doing extremely well two days postop from his low anterior resection. He is having bowel movements and voiding without difficulty. He denied any bleeding and has no significant pain. PLAN: The patient will be discharged home today. He was counseled that he should avoid any strenuous physical activity for at least the next month. He can shower and remove the light dressings from his wounds but should leave the Steri-Strips to come off on their own. He can take a regular diet as tolerated. He has been previously counseled that there is a chance that he will have some issues initially with telling the difference between flatus and stool or in controlling his bowel movements, particularly if loose. He has not had these problems yet. He was counseled that he should follow up with me in the office in the next 10 to 14 days. He should call the office for any problems. He will not be provided with a prescription for any pain medications as he has not required it. We will await his final pathology and review this at the time of his first postop visit. SHELLY
== END 2020-03-09 15:31 | disposition home or self-care (01) | DRG 331 ==
LOC: M OR 09:36 → M MSPAV 18:27
PROVIDERS: ADMIT Surgery; ATTEND Surgery
PROC: 0DTP4ZZ Resection of Rectum, Percutaneous Endoscopic Approach (ICD-10-PCS; 2020-03-07)
PROC: 8E0W4CZ Robotic Assisted Procedure of Trunk Region, Percutaneous Endoscopic Approach (ICD-10-PCS; 2020-03-07)
PROC: 0DJD8ZZ Inspection of Lower Intestinal Tract, Via Natural or Artificial Opening Endoscopic (ICD-10-PCS; 2020-03-07)
PROC: 0DBN4ZZ Excision of Sigmoid Colon, Percutaneous Endoscopic Approach (ICD-10-PCS; principal; 2020-03-07 11:15)
DX: C19 Malignant neoplasm of rectosigmoid junction (principal); I10 Essential (primary) hypertension; F41.9 Anxiety disorder, unspecified; F32.9 Major depressive disorder, single episode, unspecified; E78.00 Pure hypercholesterolemia, unspecified; Z79.899 Other long term (current) drug therapy

== ENCOUNTER → 2020-09-29 | Outpatient (REF) | payer MEDICARE ==
[~2020-09-29] MED LIST changes: -ALVIMOPAN 12 MG CAPSULE (ENTEREG) PO ONE; -LR 1,000 ML IV ONE; +METO1TAB7 PO; -cefoTEtan DISODIUM 2 GM in D5W MINI-BAG PLUS 50 ML IV ONE
[2020-09-29 13:41] LABS: FERRITIN 436 NG/ML (26-388)
[2020-09-29 13:44] LABS: VITAMIN B12 LEVEL 221 PG/ML (247-911)
== END ==
LOC: M LAB REF 12:14
PROVIDERS: ATTEND Nurse Practitioner Adult Health
DX: E83.10 Disorder of iron metabolism, unspecified (principal); R41.3 Other amnesia

== ENCOUNTER → 2021-01-20 | Outpatient (REF) | payer MEDICARE | LOC: M LAB REF 16:15 | PROVIDERS: ATTEND Nurse Practitioner Adult Health | DX: D51.9 Vitamin B12 deficiency anemia, unspecified (principal) ==

== ENCOUNTER → 2021-02-03 | Outpatient (CLI) | payer MEDICARE ==
[~2021-02-03] MED LIST changes: +ISOVUE-370 76% 100ML VIAL As Ordered ONE
--- NOTE | 2021-02-04 18:11 | REP ---
INDICATION: TAA COMPARISON: None. TECHNIQUE: Axial contrast enhanced images from the thoracic inlet to the upper abdomen using angiographic technique with multiplanar re-formations. 75 ml Isovue 370 intravenous contrast material administered without complication. This CT examination was performed using the following dose reduction techniques: Automated exposure control, adjustment of mA and/or kv according to the patient's size, and use of iterative reconstruction technique. FINDINGS: Thoracic aorta demonstrates minimal atherosclerotic changes. The ascending thoracic aorta measures 3.9 cm maximal diameter while the descending thoracic aorta measures 2.7 cm maximal diameter. There is no associated evidence for dissection or periaortic inflammatory stranding. Pulmonary vasculature appears normal. Heart and pericardium are normal. Bilateral lung mcgill are well aerated and essentially clear. No acute consolidation, suspicious nodule or mass. No effusion. No pneumothorax. Tracheobronchial tree is patent. No axillary, hilar, or mediastinal adenopathy. Musculoskeletal structures are intact and without acute osseous abnormality. IMPRESSION: 1. Thoracic aorta as described above. 2. No acute mediastinal or pleuroparenchymal process appreciated. <Electronically signed by Pieter Figueroa > 02/04/21 0003
== END ==
LOC: M RAD 15:49
PROVIDERS: ATTEND Nurse Practitioner Adult Health
DX: I71.2 Thoracic aortic aneurysm, without rupture (principal)
CPT/HCPCS: 71275; Q9967

== ENCOUNTER → 2021-02-27 | Outpatient (CLI) | payer MEDICARE ==
[~2021-02-27] MED LIST changes: +CYAN500T14 PO; -ISOVUE-370 76% 100ML VIAL As Ordered ONE
== END ==
LOC: M LABSMTC 11:06
PROVIDERS: ATTEND Anesthesiology
DX: Z01.812 Encounter for preprocedural laboratory examination (principal); Z20.822 Contact with and (suspected) exposure to COVID-19

== ENCOUNTER 2021-03-03 07:43 | Day surgery (SDC) | payer MEDICARE ==
[~2021-03-03] VITALS: Ht 175.3 cm; Wt 70.2 kg
[~2021-03-03 07:43] MED LIST changes: +NS 1,000 ML IV ONE
[2021-03-03] MEDS ORDERED: LIDOCAINE 2% 100MG/5ML SDV (FOR ANES.) As Ordered ONE (08:49)
[2021-03-03] MEDS ORDERED: propofoL 200 MG/20 ML VIAL As Ordered ONE (08:49)
[2021-03-03] MEDS ORDERED: ePHEDrine SULFATE 25 MG/5 ML(5MG/ML) SYRINGE As Ordered ONE (09:17)
--- NOTE | 2021-03-03 09:30 | ROOR ---
Patient Name: Juan Kc Procedure Date: 03/03/2021 9:03 AM Date of : 1945 Age: 75 Room: [facility] Gender: Male Note Status: Finalized Procedure: Colonoscopy Indications: High risk colon cancer surveillance: Personal history of colon cancer Providers: Armani Page MD Referring MD: Britta Blue NP Requesting Provider: Medicines: Monitored Anesthesia Care Complications: No immediate complications. Procedure: Pre-Anesthesia Assessment: - Prior to the procedure, a History and Physical was performed, and patient medications and allergies were reviewed. The patient is competent. The risks and benefits of the procedure and the sedation options and risks were discussed with the patient. All questions were answered and informed consent was obtained. Patient identification and proposed procedure were verified by the physician, the nurse and the anesthesiologist in the procedure room. Mental Status Examination: alert and oriented. Airway Examination: normal oropharyngeal airway and neck mobility. Respiratory Examination: clear to auscultation. CV Examination: normal. Prophylactic Antibiotics: The patient does not require prophylactic antibiotics. Prior Anticoagulants: The patient has taken no previous anticoagulant or antiplatelet agents. ASA Grade Assessment: II - A patient with mild systemic disease. After reviewing the risks and benefits, the patient was deemed in satisfactory condition to undergo the procedure. The anesthesia plan was to use monitored anesthesia care (MAC). Immediately prior to administration of medications, the patient was re-assessed for adequacy to receive sedatives. The heart rate, respiratory rate, oxygen saturations, blood pressure, adequacy of pulmonary ventilation, and response to care were monitored throughout the procedure. The physical status of the patient was re-assessed after the procedure. The Colonoscope was introduced through the anus and advanced to the terminal ileum, with identification of the appendiceal orifice and IC valve. The colonoscopy was performed without difficulty. The patient tolerated the procedure well. The quality of the bowel preparation was good. The terminal ileum, ileocecal valve, appendiceal orifice, and rectum were photographed. Scope insertion time was 2 minutes. Scope withdrawal time was 8 minutes. The total duration of the procedure was 10 minutes. Findings: The perianal and digital rectal examinations were normal. The terminal ileum appeared normal. There was evidence of a prior end-to-end colo-colonic anastomosis in the recto-sigmoid colon. This was patent and was characterized by healthy appearing mucosa and an intact staple line. The anastomosis was traversed. Non-bleeding external and internal hemorrhoids were found during retroflexion. The hemorrhoids were large. Impression: - The examined portion of the ileum was normal. - Patent end-to-end colo-colonic anastomosis, characterized by healthy appearing mucosa and an intact staple line. - Non-bleeding external and internal hemorrhoids. - No specimens collected. Recommendation: - Patient has a contact number available for emergencies. The signs and symptoms of potential delayed complications were discussed with the patient. Return to normal activities tomorrow. Written discharge instructions were provided to the patient. - High fiber diet. - Continue present medications. - Preparation H ointment: Apply externally daily for 5 days. - Repeat colonoscopy in 3 years for surveillance. - Return to GI clinic in 3 years. - Telephone GI clinic if symptomatic. - Return to primary care physician. Procedure Code(s): --- Professional --- 19458, Colonoscopy, flexible; diagnostic, including collection of specimen(s) by brushing or washing, when performed (separate procedure) Diagnosis Code(s): --- Professional --- Z85.038, Personal history of other malignant neoplasm of large intestine K64.8, Other hemorrhoids Z98.0, Intestinal bypass and anastomosis status CPT copyright 2019 [employer]. All rights reserved. The codes documented in this report are preliminary and upon certified medical coder review may be revised to meet current compliance requirements. Armani Page MD Armani Page MD 03/03/2021 9:29:40 AM Electronically signed by Armani Page MD Number of Addenda: 0 Note Initiated On: 03/03/2021 9:03 AM Estimated Blood Loss: Estimated blood loss was minimal.
[2021-03-03 09:45] VITALS: BP 136/77
== END 2021-03-03 09:56 | disposition home or self-care (01) ==
LOC: M OPP 07:43
PROVIDERS: ATTEND Internal Medicine Gastroenterology
DX: Z12.11 Encounter for screening for malignant neoplasm of colon (principal); Z85.038 Personal history of other malignant neoplasm of large intestine; Z98.0 Intestinal bypass and anastomosis status; K64.8 Other hemorrhoids; Z85.46 Personal history of malignant neoplasm of prostate; Z79.899 Other long term (current) drug therapy

== ENCOUNTER → 2021-10-11 | Outpatient (REF) | payer MEDICARE ==
[~2021-10-11] MED LIST changes: -NS 1,000 ML IV ONE
[2021-10-13 13:14] LABS: PERCENT SATURATION 57.4 % (19.7-50.0)
== END ==
LOC: M LAB REF 16:03
PROVIDERS: ATTEND Nurse Practitioner Adult Health
DX: D51.9 Vitamin B12 deficiency anemia, unspecified (principal); E83.110 Hereditary hemochromatosis; C18.7 Malignant neoplasm of sigmoid colon

== ENCOUNTER → 2022-10-11 | Outpatient (REF) | payer MEDICARE ==
[~2022-10-11] MED LIST changes: -PAXI30TA11 PO; +PAXI30TA12 PO; -PAXI40TA10 PO; +PAXI40TA12 PO
== END ==
LOC: M LAB REF 16:31
PROVIDERS: ATTEND Nurse Practitioner Adult Health
DX: Z85.038 Personal history of other malignant neoplasm of large intestine (principal); Z85.46 Personal history of malignant neoplasm of prostate; E53.8 Deficiency of other specified B group vitamins

== ENCOUNTER → 2022-11-01 | Outpatient (CLI) | payer MEDICARE ==
[~2022-11-01] MED LIST changes: +ISOVUE-370 76% 100ML VIAL ONE
== END ==
LOC: M PLAIMG 09:59
PROVIDERS: ATTEND Nurse Practitioner Adult Health
DX: I71.20 Thoracic aortic aneurysm, without rupture, unspecified (principal)
CPT/HCPCS: 71275; Q9967

== ENCOUNTER → 2022-12-14 | Outpatient (CLI) | payer MEDICARE ==
[~2022-12-14] MED LIST changes: -ISOVUE-370 76% 100ML VIAL ONE
== END ==
LOC: M RAD 09:27
PROVIDERS: ATTEND Nurse Practitioner Adult Health
DX: K76.0 Fatty (change of) liver, not elsewhere classified (principal)

== ENCOUNTER 2022-12-25 08:34 | Day surgery (SDC) | payer MEDICARE ==
[~2022-12-25] VITALS: Ht 175.3 cm; Wt 68.2 kg
[~2022-12-25 08:34] MED LIST changes: +NS 1,000 ML IV ONE
[2022-12-25] MEDS ORDERED: propofoL 500 MG/50 ML VIAL As Ordered ONE (10:00)
[2022-12-25] MEDS ORDERED: LIDOCAINE 2% 100MG/5ML SDV (FOR ANES.) As Ordered ONE (10:00)
[2022-12-25] MEDS ORDERED: fentaNYL 100 MCG/2 ML INJECTION As Ordered ONE (10:01)
[2022-12-25 10:55] VITALS: BP 158/74; O2SAT 97
== END 2022-12-25 10:57 | disposition home or self-care (01) ==
LOC: M OPP 08:34
PROVIDERS: ATTEND Internal Medicine Gastroenterology
DX: Z85.038 Personal history of other malignant neoplasm of large intestine (principal); K63.5 Polyp of colon; K64.4 Residual hemorrhoidal skin tags; K64.8 Other hemorrhoids; Z98.0 Intestinal bypass and anastomosis status; K44.9 Diaphragmatic hernia without obstruction or gangrene; K22.89 Other specified disease of esophagus; K29.70 Gastritis, unspecified, without bleeding; K76.6 Portal hypertension; Z79.02 Long term (current) use of antithrombotics/antiplatelets; Z79.899 Other long term (current) drug therapy
CPT/HCPCS: 43239; 45385; 88305; J3010

== ENCOUNTER → 2023-01-25 | Outpatient (REF) | payer MEDICARE ==
[~2023-01-25] MED LIST changes: -NS 1,000 ML IV ONE
[2023-01-25 10:01] LABS: HEMOGLOBIN A1c 5.2 % (4.0-6.0)
== END ==
LOC: M LAB REF 09:20
PROVIDERS: ATTEND Family Medicine
DX: R73.01 Impaired fasting glucose (principal)

== ENCOUNTER → 2023-02-22 | Outpatient (CLI) | payer MEDICARE ==
[~2023-02-22] MED LIST changes: +LIDOCAINE 1% MDV 20ML VIAL As Ordered ONE
[2023-02-22 09:19] VITALS: TEMP 98.2
[2023-02-22 09:56] LABS: INR 1.02; PROTHROMBIN TIME 13.1 SECONDS (12.5-14.5)
[2023-02-22 12:40] VITALS: BP 144/72; O2SAT 98
== END ==
LOC: M IRPRO 08:59
PROVIDERS: ATTEND Internal Medicine Gastroenterology
DX: E83.119 Hemochromatosis, unspecified (principal); C78.7 Secondary malignant neoplasm of liver and intrahepatic bile duct; C18.9 Malignant neoplasm of colon, unspecified

== ENCOUNTER → 2023-04-08 | Outpatient (CLI) | payer MEDICARE ==
[~2023-04-08] MED LIST changes: -LIDOCAINE 1% MDV 20ML VIAL As Ordered ONE; +OMEP40CA5 PO
== END ==
LOC: M PLARAD 10:15
PROVIDERS: ATTEND Internal Medicine Hematology & Oncology
DX: C20 Malignant neoplasm of rectum (principal)
CPT/HCPCS: 78815; A9552

== ENCOUNTER → 2023-06-04 | Outpatient (CLI) | payer MEDICARE ==
[~2023-06-04] VITALS: Ht 175.3 cm; Wt 70.9 kg
[~2023-06-04] MED LIST changes: +LIDOCAINE 1% MDV 20ML VIAL As Ordered ONE; +LIDOCAINE W/EPINEPHRINE 1% 20ML VIAL As Ordered ONE; +MIDAZOLAM INJ 2MG/2ML VIAL As Ordered ONE; +NS 1,000 ML IV SCH; +ceFAZolin 2 GM/D5W 50 ML IV BAG As Ordered ONE; +ceFAZolin SOD 2 GM in IV 1 EA IV ONE; +fentaNYL 100 MCG/2 ML INJECTION As Ordered ONE
[2023-06-04 07:15] VITALS: TEMP 98.9
[2023-06-04 09:55] VITALS: BP 127/67; O2SAT 95
== END ==
LOC: M IRPRO 06:46
PROVIDERS: ATTEND Internal Medicine Hematology & Oncology
DX: E83.118 Other hemochromatosis (principal)
CPT/HCPCS: 36561; 99152; 99153; J0690; J2250; J3010

== ENCOUNTER → 2023-07-16 | Outpatient (CLI) | payer MEDICARE ==
[~2023-07-16] MED LIST changes: +DOXY-444 PO; +LIDO30CR18 TOP; -LIDOCAINE 1% MDV 20ML VIAL As Ordered ONE; -LIDOCAINE W/EPINEPHRINE 1% 20ML VIAL As Ordered ONE; -MIDAZOLAM INJ 2MG/2ML VIAL As Ordered ONE; -NS 1,000 ML IV SCH; +ONDA8TAB8 PO; +PROC10TA5 PO; -ceFAZolin 2 GM/D5W 50 ML IV BAG As Ordered ONE; -ceFAZolin SOD 2 GM in IV 1 EA IV ONE; -fentaNYL 100 MCG/2 ML INJECTION As Ordered ONE
== END ==
LOC: M RAD 11:40
PROVIDERS: ATTEND Internal Medicine Hematology & Oncology
DX: C18.9 Malignant neoplasm of colon, unspecified (principal); I82.611 Acute embolism and thrombosis of superficial veins of right upper extremity

== ENCOUNTER → 2024-01-01 | Outpatient (CLI) | payer MEDICARE ==
[~2024-01-01] MED LIST changes: +DOXY-440 PO; -DOXY-444 PO; +GASTROGRAFIN SOLUTION 30ML ONE; +ISOVUE-370 76% 100ML VIAL ONE; +LIDVISCBTL PO; +MAALSUS19 PO; +MAGN400C PO; +METO25TA4 PO; +ONDA-284 PO; -ONDA8TAB8 PO; +POTA-298 PO
== END ==
LOC: M PLAIMG 08:34
PROVIDERS: ATTEND Specialist
DX: C18.9 Malignant neoplasm of colon, unspecified (principal); R93.5 Abnormal findings on diagnostic imaging of other abdominal regions, including retroperitoneum
CPT/HCPCS: 74177; Q9963; Q9967

== ENCOUNTER → 2024-06-22 | Outpatient (CLI) | payer MEDICARE ==
[~2024-06-22] MED LIST changes: +CLIN2CR PV; +CLIN2CR TOP; -GASTROGRAFIN SOLUTION 30ML ONE; +HYDR-3715 PO; -ISOVUE-370 76% 100ML VIAL ONE; +POTA-151 PO
== END ==
LOC: M PLARAD 11:43
PROVIDERS: ATTEND Internal Medicine Hematology & Oncology
DX: C18.9 Malignant neoplasm of colon, unspecified (principal)
CPT/HCPCS: 78815; A9552

== ENCOUNTER → 2024-10-05 | Outpatient (CLI) | payer MEDICARE ==
[~2024-10-05] MED LIST changes: +ISOVUE-370 76% 100ML VIAL As Ordered ONE
== END ==
LOC: M RAD 14:30
PROVIDERS: ATTEND Specialist
DX: C18.9 Malignant neoplasm of colon, unspecified (principal)
CPT/HCPCS: 71260; 74177; Q9967

== ENCOUNTER → 2025-03-11 | Outpatient (CLI) | payer MEDICARE ==
[~2025-03-11] MED LIST changes: +BUSP5TA; +ISOVUE-370 76% 100 ML VIAL As Ordered ONE; -ISOVUE-370 76% 100ML VIAL As Ordered ONE; +METO1TAB7
== END ==
LOC: M RAD 08:54
PROVIDERS: ATTEND Specialist
DX: C18.9 Malignant neoplasm of colon, unspecified (principal); J98.11 Atelectasis; K44.9 Diaphragmatic hernia without obstruction or gangrene; I70.0 Atherosclerosis of aorta
CPT/HCPCS: 74160; Q9967